=== PATIENT | female | born 1965 | race Caucasian/White ===

== ENCOUNTER 2019-07-04 16:44 | Emergency (ER) | payer BC, MEDICARE, OTHER ==
--- NOTE | 2019-07-04 18:00 | EDM.PDOC ---
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 Is not from the area. Is from [place]. Cannot tell us what medications she is currently taking. Is after hours and cannot contact patient's pharmacy nor primary provider. It sounds like she has lived in [place] for awhile but has no primary provider. Reports long standing back pain and also left shoulder pain/upper back pain from using her left arm so much since her aneurysm. No acute changes concerning the pain. She has no acute problems. No injury/falls. No recent illnesses. No acute changes in vision/HEENT/respiratory such as cough/sob/wheezing/ pleuritic pain/chest pain/palpations/nausea/emesis/bowel changes/UTI complaint/ hematuria/new focal weakness. Has chronic right sided weakness due to the aneurysm. Denies other medical problems other than the above. Reports OTC meds such as Tylenol or Ibuprofen are not helpful. - Related Data Allergies Allergy/AdvReac Type Severity Reaction Status Date / Time No Known Allergies Allergy Verified 07/04/19 16:45 Home Meds: Home Meds ClonazePAM [KlonoPIN] 0.5 mg PO DAILY 07/04/19 [History] Gabapentin [Neurontin] 300 mg PO DAILY 07/04/19 [History] Past Medical History HEENT History: Reports: Impaired Vision Gastrointestinal History: Reports: Bowel Obstruction Musculoskeletal History: Reports: Back Pain, Chronic Other Musculoskeletal History: PT has partial right sided paralysis Neurological History: Reports: Cerebral Aneurysms, CVA Psychiatric History: Reports: Anxiety - Past Surgical History HEENT Surgical History: Reports: None GI Surgical History: Reports: Appendectomy, Colonoscopy, Small Bowel Social & Family History - Tobacco Use Smoking Status *Q: Current Every Day Smoker Years of Tobacco use: 34 Packs/Tins Daily: 0.5 Used Tobacco, but Quit: No Second Hand Smoke Exposure: Yes - Caffeine Use Caffeine Use: Reports: Coffee, Soda - Recreational Drug Use Recreational Drug Use: No ED ROS GENERAL - Review of Systems Review Of Systems: Comprehensive ROS is negative, except as noted in HPI. ED EXAM, GENERAL - Physical Exam Exam: See Below Exam Limited By: No Limitations General Appearance: Alert, No Apparent Distress, Obese, Other (looks older than stated age) Eye Exam: Bilateral Eye: EOMI, PERRL Ears: Hearing Grossly Normal Nose: No: Nasal Deformity, Nasal Swelling, Nasal Drainage Throat/Mouth: Normal Lips, Normal Voice, No Airway Compromise Head: Atraumatic, Normocephalic Neck: Supple, Non-Tender Respiratory/Chest: No Respiratory Distress, Lungs Clear, Normal Breath Sounds, No Accessory Muscle Use Cardiovascular: Regular Rate, Rhythm, No Murmur GI/Abdominal: Soft, Non-Tender (Female) Exam: Deferred Rectal (Female) Exam: Deferred Back Exam: Other (Patient winces with light touch around left scapula, left mid back, bilateral low back) Extremities: Normal Capillary Refill Neurological: Alert, Oriented, Normal Cognition, Other (weaker on right than left (longstanding)) Psychiatric: Normal Affect, Normal Mood Skin Exam: Warm, Dry, Intact, Normal Color Course - Vital Signs Last Recorded V/S: Last Vital Signs Temp 35.9 C 07/04/19 16:53 Pulse 72 07/04/19 16:53 Resp 14 07/04/19 16:53 BP 117/68 07/04/19 16:53 Pulse Ox 98 07/04/19 16:53 - Re-Assessments/Exams Free Text/Narrative Re-Assessment/Exam: Patient looked up on [facility] website. Noted to have picked up Gabapentin and Clonazepam 06/27 in [facility]. No other controlled substances noted. Long conversation with patient and significant other regarding this being something that is appropriate for her primary provider and clinic and not the ER as it is a chronic condition. She will be given a single bottle of Tramadol but was informed that no additional controlled pain meds would be able to be obtained in the future from our ER, and that any additional narcotic pain meds need to come from her primary provider. There is some suspicion for seeking behavior as another staff member involved in her care recognized patient from another facility where patient came in frequently for pain complaints. Patient said that she understood. We offered to request an appointment for her to be seen by our hospital clinic this week but patient declined. Departure - Departure Time of Disposition: 17:57 Disposition: Home, Self-Care 01 Condition: Good Clinical Impression: Chronic left shoulder pain, Request for narcotic pain medication Chronic back pain Qualifiers: Back pain location: low back pain Back pain laterality: unspecified Sciatica presence: without sciatica Qualified Code(s): M54.5 - Low back pain - Discharge Information *PRESCRIPTION DRUG MONITORING PROGRAM REVIEWED*: Not Applicable *COPY OF PRESCRIPTION DRUG MONITORING REPORT IN PATIENT BLAIR: Not Applicable Referrals: Nuria Sprague MD [Primary Care Provider] - Forms: ED Department Discharge Additional Instructions: Use the Tramadol 1 tab every 6 hours. Any additional controlled pain medication will need to be prescribed by a primary care provider as per our discussion in the ER. Follow up with a primary provider locally during clinic hours so that they will be able to get records from your old clinic in [place]. Sepsis Event Note - Evaluation Sepsis Screening Result: No Definite Risk - Focused Exam Vital Signs: Vital Signs Temp Pulse Resp BP Pulse Ox 07/04/19 16:53 35.9 C 72 14 117/68 98 Date Exam was Performed: 07/04/19 Time Exam was Performed: 20:01
== END 2019-07-04 18:05 | disposition home or self-care (01) ==
LOC: LL.ED 16:44
DX: G89.29 Other chronic pain (principal); M25.512 Pain in left shoulder; F41.9 Anxiety disorder, unspecified; F17.210 Nicotine dependence, cigarettes, uncomplicated; I69.820 Aphasia following other cerebrovascular disease; Z79.899 Other long term (current) drug therapy
CPT/HCPCS: 99283

== ENCOUNTER 2023-01-05 19:22 | Emergency (ER) | payer MEDICARE, MEDICAID ==
[2023-01-05 19:46] LABS: BASOPHILS ABSOLUTE AUTO 0.03 K/uL (0.00-0.20); BASOPHILS PERCENT AUTO 0.3 % (0.0-2.0); EOSINOPHILS ABSOLUTE AUTO 0.14 K/uL (0.00-0.50); EOSINOPHILS PERCENT AUTO 1.4 % (0.0-5.0); HEMATOCRIT 39.6 % (34.0-46.0); HEMOGLOBIN 13.3 g/dL (11.7-15.5); LYMPHOCYTES ABSOLUTE AUTO 4.68 K/uL (0.50-3.50); MEAN CORPUSCULAR HEMOGLOBIN 27.9 pg (28.2-33.3); MEAN CORPUSCULAR HGB CONC 33.6 g/dL (31.7-36.0); NEUTROPHILS ABSOLUTE AUTO 4.31 K/uL (1.40-7.00); NEUTROPHILS PERCENT AUTO 43.3 % (45.0-80.0); PLATELET COUNT,PLT 305 K/uL (150-350); RED BLOOD CELL COUNT 4.77 M/uL (3.77-5.09); RED CELL DISTRIBUTION WIDTH 13.6 % (11.2-14.1)
[2023-01-05 19:59] LABS: PROTHROMBIN TIME 9.8 SEC (9.0-11.1)
[2023-01-05 20:06] LABS: ALANINE AMINOTRANSFERASE,ALT 19 U/L (12-78); ALBUMIN 3.6 g/dL (3.4-5.0); ALKALINE PHOSPHATASE 47 IU/L (46-116); ANION GAP 14.2 meq/L (7-15); ASPARTATE AMNIOTRANSFERASE,AST 12 U/L (15-37); BILIRUBIN TOTAL 0.1 mg/dL (0.2-1.0); BLOOD UREA NITROGEN,BUN 10 mg/dL (7-18); CALCIUM 9.1 mg/dL (8.5-10.1); CARBON DIOXIDE,CO2 25.4 mmol/L (21.0-32.0); CHLORIDE,CL 108 mmol/L (98-107); CREATININE 0.68 mg/dL (0.51-1.17); ESTIMATED GFR 102 mL/min (>=60); ETHANOL BLOOD MEDICAL 0.002 g/dL (0.000-0.080); GLUCOSE RANDOM 98 mg/dL (70-99); POTASSIUM,K 3.6 mmol/L (3.5-5.1); SODIUM,NA 144 mmol/L (136-145)
[2023-01-05] MEDS ORDERED: Iopamidol 755 Mg/ML 100 ML Bottle IVPUSH ONE ×2 (20:14)
[2023-01-05 21:16] LABS: AMPHETAMINES SCREEN, URINE NEGATIVE (NEGATIVE); BARBITURATE SCREEN,URINE NEGATIVE (NEGATIVE); BENZODIAZEPINES SCREEN,URINE NEGATIVE (NEGATIVE); COCAINE METABOLITES,URINE NEGATIVE (NEGATIVE); EDDP,URINE SCREEN NEGATIVE (NEGATIVE); METHAMPHETAMINES SCREEN, URINE NEGATIVE (NEGATIVE); TCA SCREEN,URINE NEGATIVE (NEGATIVE); THC SCREEN,URINE 50 NG/ML POSITIVE (NEGATIVE)
[2023-01-05 21:17] LABS: BUPRENORPHINE SCREEN,URINE NEGATIVE (NEGATIVE); OXYCODONE SCREEN,URINE NEGATIVE (NEGATIVE)
== END 2023-01-05 21:45 ==
LOC: LL.ED 19:22
DX: R29.810 Facial weakness (principal); Z72.0 Tobacco use; Z86.73 Personal history of transient ischemic attack (TIA), and cerebral infarction without residual deficits
CPT/HCPCS: 36415; 70450; 70496; 70498; 80053; 80305-QW; 80307; 84484; 85025; 85610; 93005; 93010; 99284; 99285; Q9967